=== PATIENT | male | born 1945 | race Caucasian/White ===

== ENCOUNTER 2017-10-31 06:56 | Day surgery (SDC) | payer MEDICARE, BC ==
[~2017-10-31 06:56] MED LIST: Lactated Ringers 1,000 ML IV SCH; Lidocaine 1%/Sod Bicarbonate in NS 8.4% 1 ML Syringe IDERM PRN; Sodium Chloride 0.9% 10 ML Syringe FLUSH PRN
[2017-10-31] MEDS ORDERED: Lidocaine 1% 2 ML ONE ×2 (07:01)
[2017-10-31] MEDS ORDERED: Propofol 200 MG/20 ML SDV ONE ×2 (07:01→08:18)
--- NOTE | 2017-10-31 07:26 | PCM.PREANE ---
Preanesthetic Assessment - Allergies Allergies/Adverse Reactions: Allergies Allergy/AdvReac Type Severity Reaction Status Date / Time mold Allergy Cannot Verified 10/30/17 13:37 Remember dust Allergy Cannot Uncoded 10/30/17 13:37 Remember PreAnesthesia Questionnaire HEENT History: Reports: Impaired Vision, Sinusitis, Other (See Below) Other HEENT History: wears glasses, has dentures Cardiovascular History: Reports: Afib, CAD, High Cholesterol, Hypertension, Pacemaker, Other (See Below) Other Cardiovascular History: sick sinus syndrome prior to pacemaker, peripheral artery disease Respiratory History: Reports: None Gastrointestinal History: Reports: Colon Polyp, Other (See Below) Other Gastrointestinal History: CDIFF Genitourinary History: Reports: Other (See Below) Other Genitourinary History: renal insufficiency INNOVATION ANALYST History: Reports: None Musculoskeletal History: Reports: Other (See Below) Other Musculoskeletal History: left shoulder pain Neurological History: Reports: Other (See Below) Other Neuro History: dunaway's palsy Psychiatric History: Reports: Anxiety, Depression Endocrine/Metabolic History: Reports: None Hematologic History: Reports: None Immunologic History: Reports: None Oncologic (Cancer) History: Reports: None Dermatologic History: Reports: None - Past Surgical History HEENT Surgical History: Reports: Cataract Surgery Cardiovascular Surgical History: Reports: Pacer Respiratory Surgical History: Reports: None GI Surgical History: Reports: Appendectomy, Cholecystectomy, Colonoscopy Female Surgical History: Reports: None Male Surgical History: Reports: None Endocrine Surgical History: Reports: None Neurological Surgical History: Reports: None Oncologic Surgical History: Reports: None Dermatological Surgical History: Reports: None - SUBSTANCE USE Smoking Status *Q: Never Smoker Recreational Drug Use History: No - HOME MEDS Home Medications: Home Meds Apixaban [Eliquis] 5 mg PO BID 10/30/17 [History] Atenolol 25 mg PO BID 10/30/17 [History] ClonazePAM [KlonoPIN] 0.5 mg PO BID 10/30/17 [History] Ipratropium [Atrovent 0.06% Nasal [place]] 1 spray NASBOTH BID 10/30/17 [History] Simvastatin 10 mg PO BEDTIME 10/30/17 [History] Vortioxetine Hydrobromide [Trintellix] 10 mg PO QAM 10/30/17 [History] traZODone HCl [Trazodone HCl] 50 mg PO BEDTIME 10/30/17 [History] - CURRENT (IN HOUSE) MEDS Current Meds: Current Medications Lactated Ringer's (Ringers, Lactated) 1,000 mls @ 125 mls/hr IV ASDIRECTED SERJIO Stop: 10/31/17 23:00 Lidocaine/Sodium Bicarbonate (Buffered Lidocaine 1% In Ns 8.4%) 0.25 ml IDERM ONETIME PRN PRN Reason: Prior to IV Start Stop: 10/31/17 18:00 Sodium Chloride (Saline Flush) 10 ml FLUSH ASDIRECTED PRN PRN Reason: Keep Vein Open Stop: 10/31/17 18:00 Discontinued Medications Lidocaine HCl (Xylocaine-Mpf 1%) Confirm Administered Dose 2 mls @ as directed .ROUTE .STK-MED ONE Stop: 10/31/17 07:02 Lidocaine HCl (Xylocaine-Mpf 1%) Confirm Administered Dose 2 mls @ as directed .ROUTE .STK-MED ONE Stop: 10/31/17 07:02 Propofol (Diprivan 20 Ml) Confirm Administered Dose 200 mg .ROUTE .STK-MED ONE Stop: 10/31/17 07:02
[2017-10-31] MEDS ORDERED: Atenolol 25 MG Tab PO SCH (07:30)
--- NOTE | 2017-10-31 07:32 | PCM.PREANE ---
Preanesthetic Assessment - Anesthesia/Transfusion/Family Hx Anesthesia History: Prior Anesthesia Without Reaction Family History of Anesthesia Reaction: No Transfusion History: No Prior Transfusion(s) Intubation History: Unknown - Review of Systems General: No Symptoms Pulmonary: No Symptoms, Cough (pt states he does have an allergy cough) Gastrointestinal: No Symptoms Neurological: No Symptoms Other: Reports: None - Physical Assessment NPO Status Date: 10/30/17 NPO Status Time: 16:00 Pulse: 69 O2 Sat by Pulse Oximetry: 96 Respiratory Rate: 16 Blood Pressure: 138/86 Temperature: 98.0 C ASA Class: 2 Mental Status: Alert & Oriented x3 Airway Class: Mallampati = 2 Dentition: Reports: Partial Thyro-Mental Finger Breadths: 3 Mouth Opening Finger Breadths: 3 ROM/Head Extension: Full Lungs: Clear to Auscultation, Normal Respiratory Effort Cardiovascular: Regular Rate, Regular Rhythm - Allergies Allergies/Adverse Reactions: Allergies Allergy/AdvReac Type Severity Reaction Status Date / Time mold Allergy Cannot Verified 10/30/17 13:37 Remember dust Allergy Cannot Uncoded 10/30/17 13:37 Remember - Anesthesia Plan Beta Sirisha: Atenolol Med Last Dose Date: 10/29/17 Med Last Dose Time: 07:00 - Acknowledgements Anesthesia Type Planned: MAC Pt an Appropriate Candidate for the Planned Anesthesia: Yes Alternatives and Risks of Anesthesia Discussed w Pt/Guardian: Yes Pt/Guardian Understands and Agrees with Anesthesia Plan: Yes PreAnesthesia Questionnaire HEENT History: Reports: Impaired Vision, Sinusitis, Other (See Below) Other HEENT History: wears glasses, has dentures Cardiovascular History: Reports: Afib, CAD, High Cholesterol, Hypertension, Pacemaker, Other (See Below) Other Cardiovascular History: sick sinus syndrome prior to pacemaker, peripheral artery disease Respiratory History: Reports: None Gastrointestinal History: Reports: Colon Polyp, GERD, Other (See Below) Other Gastrointestinal History: CDIFF Genitourinary History: Reports: Other (See Below) Other Genitourinary History: renal insufficiency STRAINER CLEANER History: Reports: None Musculoskeletal History: Reports: Other (See Below) Other Musculoskeletal History: left shoulder pain Neurological History: Reports: Other (See Below) Other Neuro History: dunaway's palsy Psychiatric History: Reports: Anxiety, Depression Hematologic History: Reports: None Immunologic History: Reports: None Oncologic (Cancer) History: Reports: None Dermatologic History: Reports: None - Past Surgical History HEENT Surgical History: Reports: Cataract Surgery Cardiovascular Surgical History: Reports: Pacer Respiratory Surgical History: Reports: None GI Surgical History: Reports: Appendectomy, Cholecystectomy, Colonoscopy Female Surgical History: Reports: None Male Surgical History: Reports: None Endocrine Surgical History: Reports: None Neurological Surgical History: Reports: None Musculoskeletal Surgical History: Reports: None Oncologic Surgical History: Reports: None Dermatological Surgical History: Reports: None - SUBSTANCE USE Smoking Status *Q: Former Smoker Recreational Drug Use History: No - HOME MEDS Home Medications: Home Meds Apixaban [Eliquis] 5 mg PO BID 10/30/17 [History] Atenolol 25 mg PO BID 10/30/17 [History] ClonazePAM [KlonoPIN] 0.5 mg PO BID 10/30/17 [History] Ipratropium [Atrovent 0.06% Nasal [place]] 1 spray NASBOTH BID 10/30/17 [History] Simvastatin 10 mg PO BEDTIME 10/30/17 [History] Vortioxetine Hydrobromide [Trintellix] 10 mg PO QAM 10/30/17 [History] traZODone HCl [Trazodone HCl] 50 mg PO BEDTIME 10/30/17 [History] - CURRENT (IN HOUSE) MEDS Current Meds: Current Medications Lactated Ringer's (Ringers, Lactated) 1,000 mls @ 125 mls/hr IV ASDIRECTED SERJIO Stop: 10/31/17 23:00 Lidocaine/Sodium Bicarbonate (Buffered Lidocaine 1% In Ns 8.4%) 0.25 ml IDERM ONETIME PRN PRN Reason: Prior to IV Start Stop: 10/31/17 18:00 Sodium Chloride (Saline Flush) 10 ml FLUSH ASDIRECTED PRN PRN Reason: Keep Vein Open Stop: 10/31/17 18:00 Discontinued Medications Lidocaine HCl (Xylocaine-Mpf 1%) Confirm Administered Dose 2 mls @ as directed .ROUTE .STK-MED ONE Stop: 10/31/17 07:02 Lidocaine HCl (Xylocaine-Mpf 1%) Confirm Administered Dose 2 mls @ as directed .ROUTE .STK-MED ONE Stop: 10/31/17 07:02 Propofol (Diprivan 20 Ml) Confirm Administered Dose 200 mg .ROUTE .STK-MED ONE Stop: 10/31/17 07:02
--- NOTE | 2017-10-31 08:56 | PCM48HPAN ---
Post Anesthesia Note - EVALUATION WITHIN 48HRS OF ANESTHETIC Vital Signs in Normal Range: Yes Patient Participated in Evaluation: Yes Respiratory Function Stable: Yes Airway Patent: Yes Cardiovascular Function Stable: Yes Hydration Status Stable: Yes Pain Control Satisfactory: Yes Nausea and Vomiting Control Satisfactory: Yes Mental Status Recovered: Yes Pulse Rate: 65 SaO2: 97 Resp Rate: 14 Temperature: 98.0 C Blood Pressure: 110/63 Pulse Rate: 65
--- NOTE | 2017-10-31 09:10 | PCM.OPNOTE ---
- General Post-Op/Procedure Note Date of Surgery/Procedure: 10/31/17 Findings: colonoscopy to cecum, multiple polyps noted and removed, several 1-2mm polyps not resected Pre Op Diagnosis: history of colon polyps Post-Op Diagnosis: same Anesthesia Technique: MAC Primary Surgeon: Cassi Barahona Anesthesia Provider: Jenny Steven Pathology: 1. Ascending colon polyps x2 2. Hepatic flexure polyps 3. Transverse colon polyp 4. Descending colon polyp 5. Sigmoid colon polyp Fluid Replacement, Intraop: 900 Output, Urine Amount: 0 EBL in mLs: 0 Complications: none apparent Condition: Good
--- NOTE | 2017-10-31 10:04 | PCM.PRNOTE ---
- Free Text/Narrative Note: Operative Report Date of Surgery/Procedure: October 31, 2017 Operative Procedure: Colonoscopy to cecum with polypectomy Pre Op Diagnosis: colorectal cancer screening with history of colon polyps Post-Op Diagnosis: Same Surgeon: Cassi Barahona MD Anesthesia Technique: MAC Anesthesia Provider: Jenny Steven CRNA IV Fluid Replacement, Intraop: 900 cc Output, Urine Amount: , 0 cc EBL : 0 cc Findings: Multiple scattered polyps throughout the colon including several 1-2 mm polyps that appeared as hyperplastic polyps that were not biopsied Specimens: 1. Ascending colon polyps x2 2. Hepatic flexure polyps 3. Transverse colon polyp 4. Descending colon polyp 5. Sigmoid colon polyp Indication: The patient is a 72 year-old gentleman who presented to the outpatient clinic requesting colorectal cancer screening. The patient has a history of colon polyps. He was scheduled to have a colonoscopy a few months ago, but it was rescheduled due to inhospitable weather conditions. We discussed the procedure of a screening colonoscopy including the polypectomy and biopsy. Risks of bleeding and perforation were discussed, the patient understood and wished to proceed. Written and consent was obtained Description of the procedure: The patient was brought to the endoscopy suite and placed in the left lateral decubitus position. Appropriate monitors were applied. The patient was given MAC anesthesia. An anorectal examination was performed, revealing very tight sphincter. The scope was placed into the rectum and advanced to cecum with moderate difficulty requiring abdominal pressure. The patients cecum was visualized but could not be entered due to tortuosity of the colon. The ileocecal valve was identified. At this point, the scope was withdrawn, paying careful attention to the mucosa. The patient had good bowel prep, allowing for visualization of 85-90 % of the mucosa. Multiple flat polyps were noted measuring 2-4 mm and were removed using a cold biopsy forceps. Polyps were taken from the ascending colon, hepatic flexure, transverse colon, descending colon, and sigmoid colon. Additional 1-2 mm polyps were noted at other points in the colon, but these had the appearance of hyperplastic polyps were not biopsied due to their small size. was noted. In the rectum, the scope was retroflexed and no abnormalities were noted, except for some hemorrhoidal tissue. The scope was placed back in the lumen and the excess air was aspirated. The patient tolerated the procedure well. Complications: none apparent Condition: Good, transported to PACU in stable condition Cassi Barahona MD General Surgery
== END 2017-10-31 09:29 | disposition home or self-care (01) ==
LOC: JD.SDS 06:56
PROVIDERS: ATTEND Surgery
DX: Z12.11 Encounter for screening for malignant neoplasm of colon (principal); D12.2 Benign neoplasm of ascending colon; D12.3 Benign neoplasm of transverse colon; D12.4 Benign neoplasm of descending colon; D12.5 Benign neoplasm of sigmoid colon; K64.9 Unspecified hemorrhoids; I10 Essential (primary) hypertension; E78.00 Pure hypercholesterolemia, unspecified; I25.10 Atherosclerotic heart disease of native coronary artery without angina pectoris; I48.0 Paroxysmal atrial fibrillation; I49.5 Sick sinus syndrome; I73.9 Peripheral vascular disease, unspecified; G51.0 Bell's palsy; F41.8 Other specified anxiety disorders; Z86.010 Personal history of colon polyps; Z79.899 Other long term (current) drug therapy; Z88.8 Allergy status to other drugs, medicaments and biological substances; Z87.891 Personal history of nicotine dependence
CPT/HCPCS: 45380; A9270; J2704; J7120; 00811; 88305; J2001

== ENCOUNTER 2019-06-16 09:33 | Observation (INO) | payer MEDICARE, BC ==
--- NOTE | 2019-06-16 10:03 | CR ---
Chest: Portable view of the chest was obtained. Comparison: No prior chest imaging is available. Heart size and mediastinum are within normal limits for portable technique. Small linear area of atelectasis or scarring is seen overlying the left cardiac apex. Lungs otherwise are clear with no acute parenchymal change. Bichamber pacemaker is seen. Bony structures are grossly intact. Surgical clips are seen with the upper abdomen most likely from prior cholecystectomy. Impression: 1. Nothing acute is seen on portable chest x-ray. Diagnostic code #2 This report was dictated in MDT
--- NOTE | 2019-06-16 11:18 | EDM.PDOC ---
ED HPI GENERAL MEDICAL PROBLEM - General Chief Complaint: Chest Pain Stated Complaint: CHEST PAIN/BTOH ARM NUMBNESS/SOB Time Seen by Provider: 06/16/19 09:35 Source of Information: Reports: Patient History Limitations: Reports: No Limitations - History of Present Illness INITIAL COMMENTS - FREE TEXT/NARRATIVE: TRIAGE NOTE -- pt c/o CP starting at 0900 this morning when he went for a walk. pt states pain then was 10/10, pain currently lying in bed is 5/10. pt has hx of HTN, high cholesterol and has a pacemaker. not diaphoretic, denies SOB currently. pt states he normally walks 3 mi no problem but wasnt able to walk today d/t the pain. pt states hes been having intermittent CP for past month but nothing like the pain this morning at 9am Above-noted. The patient has been taking a daily walk. He has been able to walk 3 miles until about 3 months ago. He has had to cut his distance back because he has had chest discomfort but no zheng chest pain but he had felt bad enough that his walking distance has been dropped incrementally. This morning he went for a walk and at the half mile onel or so he had significant central chest pain radiating to both arms. Did not note any diaphoresis. There is an equivocal history of shortness of breath associated with this. Most significantly the patient became so weak that he had to rest. The entire episode lasted perhaps 1 hour. The patient has some cardiological history. He is not real clear on the details. He had to have a pacemaker placed apparently for bradycardia but he is not real clear about this. He is also anticoagulated but is not sure why he is chronically anticoagulated. He does not recall a history of atrial fibrillation. All symptoms have resolved except for perhaps a little discomfort in his arms bilaterally. He feels well by the time of arrival. He has not taken any medication such as nitroglycerin or any other measure to moderate symptoms. It is not clear that he has had recent or current cardiology follow-up. Risk factors would include hypertension, chronic anticoagulation, and cardiological issues leading to a pacemaker and anticoagulation details of which are not known. He is a former smoker says he quit some 35 years ago. Chest Pain Score (Numeric/FACES): 5 - Related Data Allergies Allergy/AdvReac Type Severity Reaction Status Date / Time mold Allergy Severe Cannot Verified 06/16/19 09:42 Remember dust Allergy Severe Cannot Uncoded 06/16/19 09:42 Remember Home Meds: Home Meds Apixaban [Eliquis] 5 mg PO BID 10/30/17 [History] ClonazePAM [KlonoPIN] 0.5 mg PO BID 10/30/17 [History] Simvastatin 10 mg PO BEDTIME 10/30/17 [History] Vortioxetine [Trintellix] 10 mg PO QAM 10/30/17 [History] atenoloL [Atenolol] 25 mg PO DAILY 10/30/17 [History] traZODone HCl [Trazodone HCl] 50 mg PO BEDTIME 10/30/17 [History] Past Medical History HEENT History: Reports: Impaired Vision, Sinusitis, Other (See Below) Other HEENT History: wears glasses, has dentures Cardiovascular History: Reports: Afib, CAD, High Cholesterol, Hypertension, Pacemaker, Other (See Below) Other Cardiovascular History: sick sinus syndrome prior to pacemaker, peripheral artery disease Respiratory History: Reports: None Gastrointestinal History: Reports: Colon Polyp, GERD, Other (See Below) Other Gastrointestinal History: CDIFF Genitourinary History: Reports: Other (See Below) Other Genitourinary History: renal insufficiency FUR REPAIR INSPECTOR History: Reports: None Musculoskeletal History: Reports: Other (See Below) Other Musculoskeletal History: left shoulder pain Neurological History: Reports: Other (See Below) Other Neuro History: dunaway's palsy Psychiatric History: Reports: Anxiety, Depression Endocrine/Metabolic History: Reports: None Hematologic History: Reports: None Immunologic History: Reports: None Oncologic (Cancer) History: Reports: None Dermatologic History: Reports: None - Infectious Disease History Infectious Disease History: Reports: C-Difficile - Past Surgical History HEENT Surgical History: Reports: Cataract Surgery Cardiovascular Surgical History: Reports: Pacer Respiratory Surgical History: Reports: None GI Surgical History: Reports: Appendectomy, Cholecystectomy, Colonoscopy Male Surgical History: Reports: None Endocrine Surgical History: Reports: None Neurological Surgical History: Reports: None Musculoskeletal Surgical History: Reports: None Oncologic Surgical History: Reports: None Dermatological Surgical History: Reports: None Social & Family History - Tobacco Use Smoking Status *Q: Former Smoker Used Tobacco, but Quit: Yes Month/Year Tobacco Last Used: 35 years ago - Caffeine Use Caffeine Use: Reports: Tea - Recreational Drug Use Recreational Drug Use: No ED ROS GENERAL - Review of Systems Review Of Systems: Comprehensive ROS is negative, except as noted in HPI. ED EXAM, GENERAL - Physical Exam Exam: See Below Exam Limited By: No Limitations General Appearance: Alert, WD/WN, No Apparent Distress Eye Exam: Bilateral Eye: EOMI, PERRL Ears: Normal External Exam Nose: Normal Inspection Throat/Mouth: Normal Inspection Head: Atraumatic, Normocephalic Neck: Normal Inspection, Supple Respiratory/Chest: No Respiratory Distress, Decreased Breath Sounds Cardiovascular: Regular Rate, Rhythm (Paced) GI/Abdominal: Soft, Non-Tender Back Exam: Normal Inspection Extremities: Normal Inspection, Non-Tender, No Pedal Edema Neurological: Alert, Oriented, Normal Cognition Psychiatric: Normal Affect, Normal Mood Skin Exam: Warm, Dry Course - Vital Signs Last Recorded V/S: Last Vital Signs Temp 36.1 C 06/16/19 09:39 Pulse 65 06/16/19 09:39 Resp 18 06/16/19 09:39 BP 128/80 06/16/19 09:39 Pulse Ox 96 06/16/19 09:39 - Orders/Labs/Meds Orders: Active Orders 24 hr Category Date Time Status EKG Documentation Completion [RC] STAT Care 06/16/19 09:47 Active Labs: Laboratory Tests 06/16/19 06/16/19 06/16/19 Range/Units 09:45 09:45 09:45 WBC 6.35 (4.23-9.07) K/mm3 RBC 4.36 L (4.63-6.08) M/mm3 Hgb 13.3 L (13.7-17.5) gm/dl Hct 41.0 (40.1-51.0) % MCV 94.0 H (79.0-92.2) fl MCH 30.5 (25.7-32.2) pg MCHC 32.4 (32.2-35.5) g/dl RDW Std Deviation 43.6 (35.1-43.9) fL Plt Count 165 (163-337) K/mm3 MPV 11.5 (9.4-12.3) fl Neutrophils % (Manual) 60 (40-60) % Band Neutrophils % 0 (0-10) % Lymphocytes % (Manual) 32 (20-40) % Atypical Lymphs % 0 % Monocytes % (Manual) 7 (2-10) % Eosinophils % (Manual) 0 L (0.8-7.0) % Basophils % (Manual) 1 (0.2-1.2) Platelet Estimate Adequate Poikilocytosis 1+ slight Anisocytosis 1+ slight RBC Morph Comment Not Reportable PT 11.2 (9.7-12.0) SECONDS INR 1.03 APTT 29 (22-31) SECONDS Sodium 145 (136-145) mEq/L Potassium 4.2 (3.5-5.1) mEq/L Chloride 107 (98-107) mEq/L Carbon Dioxide 29 (21-32) mEq/L Anion Gap 13.2 (5-15) BUN 20 H (7-18) mg/dL Creatinine 1.5 H (0.7-1.3) mg/dL Est Cr Clr Drug Dosing 41.80 mL/min Estimated GFR (MDRD) 46 (>60) mL/min BUN/Creatinine Ratio 13.3 L (14-18) Glucose 130 H (83-115) mg/dL Calcium 8.7 (8.5-10.1) mg/dL Total Bilirubin 0.8 (0.2-1.0) mg/dL AST 22 (15-37) U/L ALT 20 (16-63) U/L Alkaline Phosphatase 117 H (46-116) U/L Troponin I < 0.017 (0.00-0.056) ng/mL Total Protein 7.2 (6.4-8.2) g/dl Albumin 3.6 (3.4-5.0) g/dl Globulin 3.6 gm/dL Albumin/Globulin Ratio 1.0 (1-2) TSH 3rd Generation 2.057 (0.358-3.74) uIU/mL - Re-Assessments/Exams Free Text/Narrative Re-Assessment/Exam: 06/16/19 12:11 The patient has remained comfortable. There are no salient lab abnormals. EKG initially was atrial paced with later tracing showing lack of atrial capture with ventricular pacing. No acute change in the EKG. Chest x-ray without acute process. Patient needs to be observed and referral or transfer can be done as indicated. Dr. Joseph has evaluated the patient and the emergency department and is admitting him in observation status to the hospitalist service. Departure - Departure Time of Disposition: 12:13 Disposition: Refer to Observation Condition: Good Clinical Impression: Exertional angina, History of pacemaker, Chronic anticoagulation Referrals: Kelli Solorio MD [Primary Care Provider] - Forms: ED Department Discharge Sepsis Event Note - Evaluation Sepsis Screening Result: No Definite Risk - Focused Exam Vital Signs: Vital Signs Temp Pulse Resp BP Pulse Ox 06/16/19 09:39 36.1 C 65 18 128/80 96 Date Exam was Performed: 06/16/19 Time Exam was Performed: 12:11 - My Orders Last 24 Hours: My Active Orders 06/16/19 09:47 EKG Documentation Completion [RC] STAT - Assessment/Plan Last 24 Hours: My Active Orders 06/16/19 09:47 EKG Documentation Completion [RC] STAT
[2019-06-16] MEDS ORDERED: Albuterol 0.083% 2.5 MG/3 ML Neb Soln NEB PRN (13:29)
[2019-06-16] MEDS ORDERED: Acetaminophen 650 MG Supp RECTAL PRN (13:29)
[2019-06-16] MEDS ORDERED: Acetaminophen 325 MG Tab PO PRN (13:29)
[2019-06-16] MEDS ORDERED: Ondansetron 4 MG/2 ML SDV IVPUSH PRN (13:29)
[2019-06-16] MEDS ORDERED: Morphine 2 MG/ML Syringe IVPUSH PRN (13:29)
--- NOTE | 2019-06-16 14:20 | PCM.HP.2 ---
<Griffin Collins N - Last Filed: 06/16/19 14:13> H&P History of Present Illness - General Date of Service: 06/16/19 Admit Problem/Dx: Admission Diagnosis/Problem Admission Diagnosis/Problem Chest pain Source of Information: Patient History Limitations: Reports: No Limitations - History of Present Illness Initial Comments - Free Text/Narative: Mr. Kwasi pelayo 73-year-old male, with past medical history significant for hypertension, dyslipidemia, depression, sick sinus syndrome and atrial fibrillation status post pacemaker placement anticoagulated with Eliquis. The patient presented today for evaluation of chest pain. The patient reported he was in his usual state of health, when approximately around 9:30 AM this morning, while doing his usual normal 2 mile walk, he developed sudden midsternal to left-sided chest pain. Patient claims pain as squeezing in nature, with radiation to both arms, reports numbness and tingling, reported symptoms last about 5 minutes, alleviated with rest, did not take any medications during episodes of chest discomfort. Also states he has noticed similar episodes in the past. Patient over the past 6 months with minimal exertion, he noticed some chest discomfort. Denies any lightheadedness, any nausea vomiting, diaphoresis denies any dysuria frequency urgency. Per the patient last stress test more than 10 years ago. Decided to come to the ED for further evaluation. Presentation to ED, initial work-up that was done to the patient and EKG and cardiac enzymes no concern for any acute findings except for BUN/creatinine 20/1.5. Given the patient's significant history of atrial fibrillation, presentation of chest pain patient will be admitted for observation for further work-up and management. Chest Pain Score (Numeric/FACES): 5 - Related Data Allergies/Adverse Reactions: Allergies Allergy/AdvReac Type Severity Reaction Status Date / Time mold Allergy Severe Cannot Verified 06/16/19 09:42 Remember dust Allergy Severe Cannot Uncoded 06/16/19 09:42 Remember Home Medications: Home Meds Apixaban [Eliquis] 5 mg PO BID 10/30/17 [History] ClonazePAM [KlonoPIN] 0.5 mg PO BID 10/30/17 [History] Simvastatin 10 mg PO BEDTIME 10/30/17 [History] Vortioxetine [Trintellix] 10 mg PO QAM 10/30/17 [History] atenoloL [Atenolol] 25 mg PO DAILY 10/30/17 [History] traZODone HCl [Trazodone HCl] 50 mg PO BEDTIME 10/30/17 [History] Past Medical History HEENT History: Reports: Impaired Vision, Sinusitis, Other (See Below) Other HEENT History: wears glasses, has dentures Cardiovascular History: Reports: Afib, CAD, High Cholesterol, Hypertension, Pacemaker, Other (See Below) Other Cardiovascular History: sick sinus syndrome prior to pacemaker, peripheral artery disease Respiratory History: Reports: None Gastrointestinal History: Reports: Colon Polyp, GERD, Other (See Below) Other Gastrointestinal History: CDIFF Genitourinary History: Reports: Other (See Below) Other Genitourinary History: renal insufficiency CHISELER HEAD History: Reports: None Musculoskeletal History: Reports: Other (See Below) Other Musculoskeletal History: left shoulder pain Neurological History: Reports: Other (See Below) Other Neuro History: dunaway's palsy Psychiatric History: Reports: Anxiety, Depression Endocrine/Metabolic History: Reports: None Hematologic History: Reports: None Immunologic History: Reports: None Oncologic (Cancer) History: Reports: None Dermatologic History: Reports: None - Infectious Disease History Infectious Disease History: Reports: C-Difficile - Past Surgical History HEENT Surgical History: Reports: Cataract Surgery Cardiovascular Surgical History: Reports: Pacer Respiratory Surgical History: Reports: None GI Surgical History: Reports: Appendectomy, Cholecystectomy, Colonoscopy Male Surgical History: Reports: None Endocrine Surgical History: Reports: None Neurological Surgical History: Reports: None Musculoskeletal Surgical History: Reports: None Oncologic Surgical History: Reports: None Dermatological Surgical History: Reports: None Social & Family History - Tobacco Use Smoking Status *Q: Former Smoker Used Tobacco, but Quit: Yes Month/Year Tobacco Last Used: 35 years ago - Caffeine Use Caffeine Use: Reports: Tea - Recreational Drug Use Recreational Drug Use: No H&P Review of Systems - Review of Systems: Review Of Systems: See Below General: Reports: No Symptoms HEENT: Reports: No Symptoms Cardiovascular: Reports: Chest Pain (with exertion) Gastrointestinal: Reports: No Symptoms Genitourinary: Reports: No Symptoms Musculoskeletal: Reports: No Symptoms Skin: Reports: No Symptoms Psychiatric: Reports: No Symptoms Neurological: Reports: No Symptoms (both hands), Numbness (in both hands), Tingling Hematologic/Lymphatic: Reports: No Symptoms Immunologic: Reports: No Symptoms Exam - Exam Exam: See Below - Vital Signs Vital Signs: Last Vital Signs Temp 96.9 F 06/16/19 09:39 Pulse 65 06/16/19 09:39 Resp 18 06/16/19 09:39 BP 128/80 06/16/19 09:39 Pulse Ox 96 06/16/19 09:39 Weight: 77.111 kg - Exam General: Alert, Oriented, Cooperative HEENT: Conjunctiva Clear, EACs Clear, EOMI, Hearing Intact Neck: Supple, Trachea Midline Lungs: Clear to Auscultation, Normal Respiratory Effort Cardiovascular: Regular Rate, Regular Rhythm GI/Abdominal Exam: Normal Bowel Sounds, Soft, Non-Tender, No Organomegaly, No Distention, No Mass Back Exam: Normal Inspection, Full Range of Motion Extremities: Normal Inspection, Normal Range of Motion Skin: Warm, Dry, Intact Neurological: Cranial Nerves Intact, Reflexes Equal Bilateral Neuro Extensive - Mental Status: Alert, Oriented x3, Normal Mood/Affect, Normal Cognition, Memory Intact Psychiatric: Alert, Normal Affect, Normal Mood - Patient Data Lab Results Last 24 hrs: Laboratory Results - last 24 hr 06/16/19 06/16/19 06/16/19 Range/Units 09:45 09:45 09:45 WBC 6.35 (4.23-9.07) K/mm3 RBC 4.36 L (4.63-6.08) M/mm3 Hgb 13.3 L (13.7-17.5) gm/dl Hct 41.0 (40.1-51.0) % MCV 94.0 H (79.0-92.2) fl MCH 30.5 (25.7-32.2) pg MCHC 32.4 (32.2-35.5) g/dl RDW Std Deviation 43.6 (35.1-43.9) fL Plt Count 165 (163-337) K/mm3 MPV 11.5 (9.4-12.3) fl Neutrophils % (Manual) 60 (40-60) % Band Neutrophils % 0 (0-10) % Lymphocytes % (Manual) 32 (20-40) % Atypical Lymphs % 0 % Monocytes % (Manual) 7 (2-10) % Eosinophils % (Manual) 0 L (0.8-7.0) % Basophils % (Manual) 1 (0.2-1.2) Platelet Estimate Adequate Poikilocytosis 1+ slight Anisocytosis 1+ slight RBC Morph Comment Not Reportable PT 11.2 (9.7-12.0) SECONDS INR 1.03 APTT 29 (22-31) SECONDS Sodium 145 (136-145) mEq/L Potassium 4.2 (3.5-5.1) mEq/L Chloride 107 (98-107) mEq/L Carbon Dioxide 29 (21-32) mEq/L Anion Gap 13.2 (5-15) BUN 20 H (7-18) mg/dL Creatinine 1.5 H (0.7-1.3) mg/dL Est Cr Clr Drug Dosing 41.80 mL/min Estimated GFR (MDRD) 46 (>60) mL/min BUN/Creatinine Ratio 13.3 L (14-18) Glucose 130 H (83-115) mg/dL Calcium 8.7 (8.5-10.1) mg/dL Phosphorus (2.6-4.7) mg/dL Total Bilirubin 0.8 (0.2-1.0) mg/dL AST 22 (15-37) U/L ALT 20 (16-63) U/L Alkaline Phosphatase 117 H (46-116) U/L Troponin I < 0.017 (0.00-0.056) ng/mL Total Protein 7.2 (6.4-8.2) g/dl Albumin 3.6 (3.4-5.0) g/dl Globulin 3.6 gm/dL Albumin/Globulin Ratio 1.0 (1-2) TSH 3rd Generation 2.057 (0.358-3.74) uIU/mL 06/16/19 Range/Units 09:45 WBC (4.23-9.07) K/mm3 RBC (4.63-6.08) M/mm3 Hgb (13.7-17.5) gm/dl Hct (40.1-51.0) % MCV (79.0-92.2) fl MCH (25.7-32.2) pg MCHC (32.2-35.5) g/dl RDW Std Deviation (35.1-43.9) fL Plt Count (163-337) K/mm3 MPV (9.4-12.3) fl Neutrophils % (Manual) (40-60) % Band Neutrophils % (0-10) % Lymphocytes % (Manual) (20-40) % Atypical Lymphs % % Monocytes % (Manual) (2-10) % Eosinophils % (Manual) (0.8-7.0) % Basophils % (Manual) (0.2-1.2) Platelet Estimate Poikilocytosis Anisocytosis RBC Morph Comment PT (9.7-12.0) SECONDS INR APTT (22-31) SECONDS Sodium (136-145) mEq/L Potassium (3.5-5.1) mEq/L Chloride (98-107) mEq/L Carbon Dioxide (21-32) mEq/L Anion Gap (5-15) BUN (7-18) mg/dL Creatinine (0.7-1.3) mg/dL Est Cr Clr Drug Dosing mL/min Estimated GFR (MDRD) (>60) mL/min BUN/Creatinine Ratio (14-18) Glucose (83-115) mg/dL Calcium (8.5-10.1) mg/dL Phosphorus 3.3 (2.6-4.7) mg/dL Total Bilirubin (0.2-1.0) mg/dL AST (15-37) U/L ALT (16-63) U/L Alkaline Phosphatase (46-116) U/L Troponin I (0.00-0.056) ng/mL Total Protein (6.4-8.2) g/dl Albumin (3.4-5.0) g/dl Globulin gm/dL Albumin/Globulin Ratio (1-2) TSH 3rd Generation (0.358-3.74) uIU/mL Result Diagrams: 06/16/19 09:45 06/16/19 09:45 Sepsis Event Note - Evaluation Sepsis Screening Result: No Definite Risk - Focused Exam Vital Signs: Vital Signs Temp Pulse Resp BP Pulse Ox 06/16/19 09:39 96.9 F 65 18 128/80 96 Date Exam was Performed: 06/16/19 Time Exam was Performed: 14:13 Problem List Initiated/Reviewed/Updated: Yes Orders Last 24hrs: Active Orders 24 hr Category Date Time Status Patient Status [ADT] Routine ADT 06/16/19 13:29 Active Antiembolic Devices [RC] PER UNIT ROUTINE Care 06/16/19 13:34 Active Cardiac Monitoring [RC] CONTINUOUS Care 06/16/19 13:29 Active EKG Documentation Completion [RC] ROUTINE Care 06/17/19 08:00 Active EKG Documentation Completion [RC] STAT Care 06/16/19 09:47 Active Height and Weight [RC] DAILY Care 06/16/19 13:29 Active Notify Provider Vital Signs [RC] ASDIRECTED Care 06/16/19 13:29 Active Orthostatic Vital Signs [RC] ASDIRECTED Care 06/16/19 13:26 Active Oxygen Therapy [RC] ASDIRECTED Care 06/16/19 13:29 Active Pacemaker Assessment [RC] ASDIRECTED Care 06/16/19 13:26 Active Up to Chair [RC] ASDIRECTED Care 06/16/19 13:29 Active Vital Signs [RC] PER UNIT ROUTINE Care 06/16/19 13:29 Active COMPREHENSIVE METABOLIC PN,CMP [CHEM] AM Lab 06/17/19 05:11 Ordered CULTURE URINE [RM] Routine Lab 06/16/19 13:44 Ordered GLYCOSYLATED HEMOGLOBIN,HGBA1C [CHEM] AM Lab 06/17/19 05:11 Ordered LIPID PANEL [CHEM] AM Lab 06/17/19 05:11 Ordered TROPONIN I [CHEM] Q6H Lab 06/16/19 16:00 Ordered TROPONIN I [CHEM] Q6H Lab 06/16/19 22:00 Ordered TROPONIN I [CHEM] Q6H Lab 06/17/19 04:00 Ordered TSH [CHEM] AM Lab 06/17/19 05:11 Ordered Acetaminophen [Tylenol] Med 06/16/19 13:29 Active 650 mg PO Q6H PRN Acetaminophen [Tylenol] Med 06/16/19 13:29 Active 650 mg RECTAL Q6H PRN Albuterol [Proventil Neb Soln] Med 06/16/19 13:29 Active 2.5 mg NEB Q2H PRN Apixaban [Eliquis] Med 06/16/19 21:00 Active 5 mg PO BID ClonazePAM [KlonoPIN] Med 06/16/19 21:00 Active 0.5 mg PO BID Docusate Sodium/Sennosides [Senna Plus] Med 06/16/19 21:00 Active 2 tab PO BID Famotidine [Pepcid] Med 06/16/19 18:00 Active 20 mg PO QPM Morphine Med 06/16/19 13:29 Active 2 mg IVPUSH Q4H PRN Ondansetron [Zofran] Med 06/16/19 13:29 Active 4 mg IVPUSH Q4H PRN Patient's Own Medication [Ptom] Med 06/17/19 08:00 Active 0 each PO QAM Simvastatin [Zocor] Med 06/16/19 21:00 Active 10 mg PO BEDTIME atenoloL [Tenormin] Med 06/17/19 09:00 Active 25 mg PO DAILY lisinopriL [Prinivil] Med 06/17/19 09:00 Ordered 5 mg PO DAILY polyethylene glycoL 3350 [MiraLAX] Med 06/17/19 09:00 Active 17 gm PO DAILY traZODone Med 06/16/19 21:00 Active 50 mg PO BEDTIME Antiembolic Hose [OM.PC] Routine Oth 06/16/19 13:29 Ordered Resuscitation Status Routine Resus Stat 06/16/19 13:29 Ordered Medication Orders Acetaminophen (Tylenol) 650 mg PO Q6H PRN PRN Reason: Pain (Mild 1-3) or Fever Acetaminophen (Tylenol) 650 mg RECTAL Q6H PRN PRN Reason: Pain (Mild 1-3) or Fever Albuterol (Proventil Neb Soln) 2.5 mg NEB Q2H PRN PRN Reason: Wheezing Apixaban (Eliquis) 5 mg PO BID SERJIO Atenolol (Tenormin) 25 mg PO DAILY SERJIO Clonazepam (Klonopin) 0.5 mg PO BID SERJIO Famotidine (Pepcid) 20 mg PO QPM SERJIO Morphine Sulfate (Morphine) 2 mg IVPUSH Q4H PRN PRN Reason: Pain (severe 7-10) Ondansetron HCl (Zofran) 4 mg IVPUSH Q4H PRN PRN Reason: Nausea and Vomiting Vortioxetine [ (Trintellix] 10 Mg) 0 each PO QAM SERJIO Polyethylene Glycol (Miralax) 17 gm PO DAILY SERJIO Senna/Docusate Sodium (Senna Plus) 2 tab PO BID SERJIO Simvastatin (Zocor) 10 mg PO BEDTIME SERJIO Trazodone HCl (Trazodone) 50 mg PO BEDTIME SERJIO Assessment/Plan Comment:: Assesment 1. Chest pain 2. Dehydration 3. Atrial fibrillation 4. Depression 5. Dyslipidemia Plan: Chest pain R/O VT: The patient will be on telemetry,trend troponin x4, EKG in the morning. Depending on test results, will decide for stress test. We will keep the patient on small dose of lisinopril 5 mg. Dehydration: On presentation BUN/creatinine 20/1.5, check the patient's orthostatic vital signs, and decide if to give patient IV fluids if patient is orthostatic. Dyslipidemia: Check lipid panel, continue simvastatin. History of paroxysmal atrial fibrillation/no syndrome syndrome: Patient's pacemaker will be interrogated, continue home atenolol, decrease. Monitor and replace electrolytes. DVT prophylaxis: On Eliquis, will continue. GI prophylaxis: Pepcid 20 mg every afternoon. Nausea: Zofran PRN nausea. Depression: Continue Trintellix and clonazepam. Insomnia: Continue trazodone Code Status: Full code Disposition: Patient will be admitted on observation for work-up and management as above trend cardiac enzymes check lipid panel TSH, interrogate pacemaker, will decide on stress test depending on patient's enzymes. - Mortality Measure Prognosis:: Good <Sabrina Thomason - Last Filed: 06/16/19 17:20> H&P History of Present Illness - General Admit Problem/Dx: Admission Diagnosis/Problem Admission Diagnosis/Problem Chest pain H&P Review of Systems - Review of Systems: Review Of Systems: Comprehensive ROS is negative, except as noted in HPI. Exam - Vital Signs Vital Signs: Last Vital Signs Temp 97.5 F 06/16/19 14:44 Pulse 62 06/16/19 14:44 Resp 18 06/16/19 09:39 BP 144/70 H 06/16/19 14:44 Pulse Ox 96 06/16/19 14:44 - Patient Data Result Diagrams: 06/16/19 09:45 06/16/19 09:45 Sepsis Event Note - Focused Exam Vital Signs: Vital Signs Temp Temp Pulse Pulse Resp BP BP 06/16/19 14:44 97.5 F 62 144/70 H 06/16/19 09:39 96.9 F 65 18 128/80 Pulse Ox 06/16/19 14:44 96 06/16/19 09:39 96 Date Exam was Performed: 06/16/19 Time Exam was Performed: 17:08 Assessment/Plan Comment:: 73-year-old male with past medical history of paroxysmal atrial fibrillation with sick sinus syndrome and pacemaker placement, hypertension and dyslipidemia with intermittent chest pain for the past 3 months and steadily worsening exercise tolerance who comes in for chest pain episode this morning. Chest pain described as squeezing graded 10/10 lasted for about 4-5 minutes while he was walking, resolved once he sat down. Denies any associated symptoms. Previous smoker, quit 35 years ago (1/2 to 1ppd) Chronic anticoagulation with Eliquis ER workup Admission VS 128/80, 65x', 18x;, 96% on RA, afebrile Creatinine of 1.5, GFR of 46 with unknown baseline No electrolyte abnormalities Negative troponin EKG within normal limits Patient denies any chest pain currently Admit patient to: Trend troponin q6h Repeat EKG in AM Start metoprolol, lisinopril, aspirin and rosuvastatin Interrogate pacemaker FULL CODE STATUS Case discussed with BRE Rowe Agree with assessment and plan set forth prior on this note.
[2019-06-16] MEDS ORDERED: Heparin Sodium/D5W 25,000 UNITS/500 ML BAG IV SCH (17:15)
[2019-06-16] MEDS ORDERED: Aspirin 81 MG Tab.Chew PO SCH (17:15)
--- NOTE | 2019-06-16 17:41 | PCM.DCSUM1 ---
Discharge Summary - Hospital Course Free Text/Narrative:: Admission Diagnosis: Chest pain Discharge Diagnosis: NSTEMI Hypertension Dyslipidemia Depression History of sick sinus syndrom s/p Pacemaker placement History paroxysmal atrial fibrillation anticoagulated with Eliquis Mr. Kwasi pelayo 73-year-old male, who was admitted this morning after the patient presented to the hospital with chief complaint of chest pain. Patient reported for the past 6 months, he has had occasional on and off chest discomfort initially thought nothing of this. 3 days ago, patient reported doing some exertion by lifting, where he noticed some chest discomfort. But today morning, patient states he normally walks about 2 miles. But just about half a mile, patient noticed he started having midsternal chest discomfort which patient describes as squeezing in nature, with radiation to both arms, reports numbness and tingling, symptoms lasted about 4-5 minutes that improved with rest, did not take any medication during this episode. Came to the ED for further evaluation. Initial work-up that was done to the patient in the ED benign except for BUN/creatinine of 20/1.5. Given this presentation, patient was admitted to the hospital for observation. Plan was to repeat the patient's EKG as well as cardiac enzymes and other cardiovascular risk equivalent. Repeat troponin came back elevated at 0.112 as compared to 0.017 at this time, the patient again was chest pain-free. Patient was given aspirin , was already started on lisinopril 5 mg along with statins. Patient was started on heparin drip. Given the patient is chest pain-free, no nitroglycerin will be given to the patient. [facility] [place] was contacted where patient was accepted by both marketing professional and hospitalist. Patient will be on heparin drip, keep patient n.p.o. after midnight, is for patient to [facility] where patient is scheduled for left heart catheterization in the morning. HPI Initial Comments: Mr. Kwasi pelayo 73-year-old male, with past medical history significant for hypertension, dyslipidemia, depression, sick sinus syndrome and atrial fibrillation status post pacemaker placement anticoagulated with Eliquis. The patient presented today for evaluation of chest pain. The patient reported he was in his usual state of health, when approximately around 9:30 AM this morning, while doing his usual normal 2 mile walk, he developed sudden midsternal to left-sided chest pain. Patient claims pain as squeezing in nature, with radiation to both arms, reports numbness and tingling, reported symptoms last about 5 minutes, alleviated with rest, did not take any medications during episodes of chest discomfort. Also states he has noticed similar episodes in the past. Patient over the past 6 months with minimal exertion, he noticed some chest discomfort. Denies any lightheadedness, any nausea vomiting, diaphoresis denies any dysuria frequency urgency. Per the patient last stress test more than 10 years ago. Decided to come to the ED for further evaluation. Presentation to ED, initial work-up that was done to the patient and EKG and cardiac enzymes no concern for any acute findings except for BUN/creatinine 20/1.5. Given the patient's significant history of atrial fibrillation, presentation of chest pain patient will be admitted for observation for further work-up and management. Diagnosis: Stroke: No - Discharge Data Discharge Date: 06/16/19 (Patient is being transferred to [facility] for further evaluation for NSTEMI) Discharge Disposition: DC/Tfer to Other 70 Condition: Serious - Referral to Home Health Primary Care Physician: Kelli Solorio MD - Patient Instructions Activity: Bedrest, May Use Bathroom (Until cleared by cardiology), No Strenuous Activities - Discharge Plan *PRESCRIPTION DRUG MONITORING PROGRAM REVIEWED*: No *COPY OF PRESCRIPTION DRUG MONITORING REPORT IN PATIENT AMBER: No Home Medications: Home Meds Apixaban [Eliquis] 5 mg PO BID 10/30/17 [History] ClonazePAM [KlonoPIN] 0.5 mg PO BID 10/30/17 [History] Simvastatin 10 mg PO BEDTIME 10/30/17 [History] Vortioxetine [Trintellix] 10 mg PO QAM 10/30/17 [History] atenoloL [Atenolol] 25 mg PO DAILY 10/30/17 [History] traZODone HCl [Trazodone HCl] 50 mg PO BEDTIME 10/30/17 [History] Oxygen Therapy Mode: Room Air (But we recommend to keep patient on 2 L of oxygen during transfer) Forms: ED Department Discharge Referrals: Kelli Solorio MD [Primary Care Provider] - - Discharge Summary/Plan Comment DC Time >30 min.: No - Patient Data Vitals - Most Recent: Last Vital Signs Temp 97.3 F 06/16/19 17:00 Pulse 62 06/16/19 17:00 Resp 20 06/16/19 17:00 BP 150/82 H 06/16/19 17:00 Pulse Ox 98 06/16/19 17:00 Weight - Most Recent: 170 lb Lab Results - Last 24 hrs: Laboratory Results - last 24 hr 06/16/19 06/16/19 06/16/19 Range/Units 09:45 09:45 09:45 WBC 6.35 (4.23-9.07) K/mm3 RBC 4.36 L (4.63-6.08) M/mm3 Hgb 13.3 L (13.7-17.5) gm/dl Hct 41.0 (40.1-51.0) % MCV 94.0 H (79.0-92.2) fl MCH 30.5 (25.7-32.2) pg MCHC 32.4 (32.2-35.5) g/dl RDW Std Deviation 43.6 (35.1-43.9) fL Plt Count 165 (163-337) K/mm3 MPV 11.5 (9.4-12.3) fl Neutrophils % (Manual) 60 (40-60) % Band Neutrophils % 0 (0-10) % Lymphocytes % (Manual) 32 (20-40) % Atypical Lymphs % 0 % Monocytes % (Manual) 7 (2-10) % Eosinophils % (Manual) 0 L (0.8-7.0) % Basophils % (Manual) 1 (0.2-1.2) Platelet Estimate Adequate Poikilocytosis 1+ slight Anisocytosis 1+ slight RBC Morph Comment Not Reportable PT 11.2 (9.7-12.0) SECONDS INR 1.03 APTT 29 (22-31) SECONDS Sodium 145 (136-145) mEq/L Potassium 4.2 (3.5-5.1) mEq/L Chloride 107 (98-107) mEq/L Carbon Dioxide 29 (21-32) mEq/L Anion Gap 13.2 (5-15) BUN 20 H (7-18) mg/dL Creatinine 1.5 H (0.7-1.3) mg/dL Est Cr Clr Drug Dosing 41.80 mL/min Estimated GFR (MDRD) 46 (>60) mL/min BUN/Creatinine Ratio 13.3 L (14-18) Glucose 130 H (83-115) mg/dL Calcium 8.7 (8.5-10.1) mg/dL Phosphorus (2.6-4.7) mg/dL Total Bilirubin 0.8 (0.2-1.0) mg/dL AST 22 (15-37) U/L ALT 20 (16-63) U/L Alkaline Phosphatase 117 H (46-116) U/L Troponin I < 0.017 (0.00-0.056) ng/mL Total Protein 7.2 (6.4-8.2) g/dl Albumin 3.6 (3.4-5.0) g/dl Globulin 3.6 gm/dL Albumin/Globulin Ratio 1.0 (1-2) TSH 3rd Generation 2.057 (0.358-3.74) uIU/mL 06/16/19 06/16/19 Range/Units 09:45 16:14 WBC (4.23-9.07) K/mm3 RBC (4.63-6.08) M/mm3 Hgb (13.7-17.5) gm/dl Hct (40.1-51.0) % MCV (79.0-92.2) fl MCH (25.7-32.2) pg MCHC (32.2-35.5) g/dl RDW Std Deviation (35.1-43.9) fL Plt Count (163-337) K/mm3 MPV (9.4-12.3) fl Neutrophils % (Manual) (40-60) % Band Neutrophils % (0-10) % Lymphocytes % (Manual) (20-40) % Atypical Lymphs % % Monocytes % (Manual) (2-10) % Eosinophils % (Manual) (0.8-7.0) % Basophils % (Manual) (0.2-1.2) Platelet Estimate Poikilocytosis Anisocytosis RBC Morph Comment PT (9.7-12.0) SECONDS INR APTT (22-31) SECONDS Sodium (136-145) mEq/L Potassium (3.5-5.1) mEq/L Chloride (98-107) mEq/L Carbon Dioxide (21-32) mEq/L Anion Gap (5-15) BUN (7-18) mg/dL Creatinine (0.7-1.3) mg/dL Est Cr Clr Drug Dosing mL/min Estimated GFR (MDRD) (>60) mL/min BUN/Creatinine Ratio (14-18) Glucose (83-115) mg/dL Calcium (8.5-10.1) mg/dL Phosphorus 3.3 (2.6-4.7) mg/dL Total Bilirubin (0.2-1.0) mg/dL AST (15-37) U/L ALT (16-63) U/L Alkaline Phosphatase (46-116) U/L Troponin I 0.112 H* (0.00-0.056) ng/mL Total Protein (6.4-8.2) g/dl Albumin (3.4-5.0) g/dl Globulin gm/dL Albumin/Globulin Ratio (1-2) TSH 3rd Generation (0.358-3.74) uIU/mL Med Orders - Current: Current Medications Acetaminophen (Tylenol) 650 mg PO Q6H PRN PRN Reason: Pain (Mild 1-3) or Fever Acetaminophen (Tylenol) 650 mg RECTAL Q6H PRN PRN Reason: Pain (Mild 1-3) or Fever Albuterol (Proventil Neb Soln) 2.5 mg NEB Q2H PRN PRN Reason: Wheezing Aspirin (Aspirin) 81 mg PO DAILY [facility] Atenolol (Tenormin) 25 mg PO DAILY [facility] Clonazepam (Klonopin) 0.5 mg PO BID [facility] Famotidine (Pepcid) 20 mg PO QPM [facility] Heparin Sodium/Dextrose (Heparin 25,000 Units In D5w 500 Ml) 25,000 units in 500 mls @ 18.507 mls/hr IV TITRATE SERJIO; Protocol Lisinopril (Prinivil) 5 mg PO DAILY [facility] Morphine Sulfate (Morphine) 2 mg IVPUSH Q4H PRN PRN Reason: Pain (severe 7-10) Ondansetron HCl (Zofran) 4 mg IVPUSH Q4H PRN PRN Reason: Nausea and Vomiting Vortioxetine [ (Trintellix] 10 Mg) 0 each PO QAM [facility] Polyethylene Glycol (Miralax) 17 gm PO DAILY [facility] Senna/Docusate Sodium (Senna Plus) 2 tab PO BID [facility] Simvastatin (Zocor) 10 mg PO BEDTIME [facility] Trazodone HCl (Trazodone) 50 mg PO BEDTIME [facility] Discontinued Medications Apixaban (Eliquis) 5 mg PO BID [facility] - Exam General: Reports: Alert, Oriented HEENT: Reports: Pupils Equal, Pupils Reactive, EOMI, Mucous Membr. Moist/[place]ce[place]ion Neck: Reports: Supple Lungs: Reports: Clear to Auscultation, Normal Respiratory Effort Cardiovascular: Reports: Regular Rate GI/Abdominal Exam: Normal Bowel Sounds, Soft, Non-Tender Back Exam: Reports: Normal Inspection, Full Range of Motion Extremities: Normal Inspection, Normal Range of Motion, Non-Tender, No Pedal Edema Skin: Reports: Warm, Dry, Intact Neurological: Reports: No New Focal Deficit Psy/Mental Status: Reports: Alert, Normal Affect, Normal Mood
[2019-06-16] MEDS ORDERED: Heparin Sodium 5,000 Units/ML Vial IVPUSH ONE (17:53)
[2019-06-16] MEDS ORDERED: Famotidine 20 MG Tab PO SCH (18:00)
[2019-06-16] MEDS ORDERED: Simvastatin 10 MG Tab PO SCH (21:00)
[2019-06-16] MEDS ORDERED: Apixaban 5 MG Tab PO SCH (21:00)
[2019-06-16] MEDS ORDERED: ClonazePAM 0.5 MG Tab PO SCH (21:00)
[2019-06-16] MEDS ORDERED: traZODone 50 MG Tab PO SCH (21:00)
[2019-06-17] MEDS ORDERED: Vortioxetine [Trintellix] 10 MG PO SCH (08:00)
[2019-06-17] MEDS ORDERED: Polyethylene Glycol 3350 Powder 17 GM Packet PO SCH (09:00)
[2019-06-17] MEDS ORDERED: Atenolol 25 MG Tab PO SCH (09:00)
[2019-06-17] MEDS ORDERED: Lisinopril 5 MG Tab PO SCH (09:00)
== END 2019-06-16 18:35 | disposition other institution (70) ==
LOC: JD.ED 09:33 → JD.MS 13:29
PROVIDERS: ADMIT Internal Medicine; ATTEND Internal Medicine
DX: I21.4 Non-ST elevation (NSTEMI) myocardial infarction (principal); I10 Essential (primary) hypertension; E78.5 Hyperlipidemia, unspecified; F32.9 Major depressive disorder, single episode, unspecified; I48.0 Paroxysmal atrial fibrillation; E86.0 Dehydration; Z79.01 Long term (current) use of anticoagulants; Z79.899 Other long term (current) drug therapy; Z95.0 Presence of cardiac pacemaker; Z87.891 Personal history of nicotine dependence; Z91.09 Other allergy status, other than to drugs and biological substances
CPT/HCPCS: 36415; 71045; 80053; 84100; 84443; 84484; 85007; 85027; 85610; 85730; 93005; A9270; J1644

== ENCOUNTER 2020-11-08 06:59 | Day surgery (SDC) | payer MEDICARE, BC ==
--- NOTE | 2020-11-08 07:34 | PCM.PREANE ---
Preanesthetic Assessment - Procedure Proposed Procedure: colonoscopy - Anesthesia/Transfusion/Family Hx Anesthesia History: Prior Anesthesia Without Reaction Family History of Anesthesia Reaction: No Transfusion History: No Prior Transfusion(s) Intubation History: Unknown - Review of Systems General: No Symptoms Pulmonary: No Symptoms Cardiovascular: Other ( of heart attack "i dont have any problems now" ) Gastrointestinal: No Symptoms Neurological: No Symptoms Other: Reports: None - Physical Assessment NPO Status Date: 11/07/20 NPO Status Time: 06:30 (water /clears) Height: 1.73 m ASA Class: 3 Mental Status: Alert & Oriented x3 Airway Class: Mallampati = 1 Dentition: Reports: Dentures (left them at home ) Thyro-Mental Finger Breadths: 3 Mouth Opening Finger Breadths: 4 ROM/Head Extension: Full Lungs: Clear to Auscultation, Normal Respiratory Effort Cardiovascular: Regular Rate, Regular Rhythm - Allergies Allergies/Adverse Reactions: Allergies Allergy/AdvReac Type Severity Reaction Status Date / Time mold Allergy Severe Cannot Verified 11/07/20 16:30 Remember dust Allergy Severe Cannot Uncoded 11/07/20 16:30 Remember - Blood Blood Available: No - Acknowledgements Anesthesia Type Planned: MAC Pt an Appropriate Candidate for the Planned Anesthesia: Yes Alternatives and Risks of Anesthesia Discussed w Pt/Guardian: Yes Pt/Guardian Understands and Agrees with Anesthesia Plan: Yes PreAnesthesia Questionnaire HEENT History: Reports: Impaired Vision, Sinusitis, Other (See Below) Other HEENT History: wears glasses, has dentures Cardiovascular History: Reports: Afib, CAD, High Cholesterol, Hypertension, Pacemaker, Other (See Below) Other Cardiovascular History: sick sinus syndrome prior to pacemaker, peripheral artery disease Respiratory History: Reports: None Gastrointestinal History: Reports: Colon Polyp, GERD, Other (See Below) Other Gastrointestinal History: CDIFF Genitourinary History: Reports: Other (See Below) Other Genitourinary History: renal insufficiency RESPIRATORY CARE ASSISTANT History: Reports: None Musculoskeletal History: Reports: Other (See Below) Other Musculoskeletal History: left shoulder pain Neurological History: Reports: Other (See Below) Other Neuro History: dunaway's palsy Psychiatric History: Reports: Anxiety, Depression Endocrine/Metabolic History: Reports: Hyperparathyroidism Hematologic History: Reports: None Immunologic History: Reports: None Oncologic (Cancer) History: Reports: None Dermatologic History: Reports: None - Infectious Disease History Infectious Disease History: Reports: None - Past Surgical History Head Surgeries/Procedures: Reports: None HEENT Surgical History: Reports: Cataract Surgery Cardiovascular Surgical History: Reports: Pacer Respiratory Surgical History: Reports: None GI Surgical History: Reports: Appendectomy, Cholecystectomy, Colonoscopy Female Surgical History: Reports: None Male Surgical History: Reports: None Endocrine Surgical History: Reports: None Neurological Surgical History: Reports: None Musculoskeletal Surgical History: Reports: None Oncologic Surgical History: Reports: None Dermatological Surgical History: Reports: None - SUBSTANCE USE Tobacco Use Status *Q: Former Tobacco User Recreational Drug Use History: No - HOME MEDS Home Medications: Home Meds Apixaban [Eliquis] 5 mg PO BID 11/07/20 [History] Aspirin 81 mg PO DAILY 11/07/20 [History] ClonazePAM [KlonoPIN] 0.5 mg PO BID 11/07/20 [History] Metoprolol Tartrate 25 mg PO BID 11/07/20 [History] Sildenafil Citrate [Viagra] 25 mg PO ASDIRECTED PRN 11/07/20 [History] Vortioxetine Hydrobromide [Trintellix] 10 mg PO DAILY 11/07/20 [History] atorvaSTATin Calcium [Atorvastatin Calcium] 80 mg PO DAILY 11/07/20 [History] traZODone 50 mg PO BEDTIME 11/07/20 [History] - CURRENT (IN HOUSE) MEDS Current Meds: Current Medications Lactated Ringer's (Ringers, Lactated) 1,000 mls @ 125 mls/hr IV ASDIRECTED SERJIO Stop: 11/08/20 23:00 Lidocaine/Sodium Bicarbonate (Lidocaine 1%/Sod Bicarbonate In Ns 8.4% 1 Ml Syringe) 0.25 ml IDERM ONETIME PRN PRN Reason: Prior to IV Start Stop: 11/08/20 18:00 Sodium Chloride (Sodium Chloride 0.9% 10 Ml Syringe) 10 ml FLUSH ASDIRECTED PRN PRN Reason: Keep Vein Open Stop: 11/08/20 18:00
--- NOTE | 2020-11-08 08:10 | PCM.PREANE ---
Preanesthetic Assessment - Procedure Proposed Procedure: Colonoscopy - Anesthesia/Transfusion/Family Hx Anesthesia History: Prior Anesthesia Without Reaction Family History of Anesthesia Reaction: No Transfusion History: No Prior Transfusion(s) Intubation History: Unknown - Review of Systems General: No Symptoms Pulmonary: No Symptoms Cardiovascular: No Symptoms Gastrointestinal: Abdominal Pain (hunger pain) Neurological: No Symptoms Other: Reports: Easy Bleeding - Physical Assessment NPO Status Date: 11/07/20 NPO Status Time: 06:30 (water /clears) Height: 1.73 m Weight: 76 kg ASA Class: 3 Mental Status: Alert & Oriented x3 Airway Class: Mallampati = 1 Dentition: Reports: Dentures (top), Partial (bottom), Missing Tooth/Teeth Thyro-Mental Finger Breadths: 3 Mouth Opening Finger Breadths: 3 ROM/Head Extension: Full Lungs: Clear to Auscultation, Normal Respiratory Effort Cardiovascular: Regular Rate, Regular Rhythm - Imaging/EKG Impressions: EKG SR rate 64 E.F. 50-55% - Allergies Allergies/Adverse Reactions: Allergies Allergy/AdvReac Type Severity Reaction Status Date / Time mold Allergy Severe Cannot Verified 11/07/20 16:30 Remember dust Allergy Severe Cannot Uncoded 11/07/20 16:30 Remember - Blood Blood Available: No - Anesthesia Plan Pre-Op Medication Ordered: Beta Sirisha Beta Sirisha: Metoprolol Med Last Dose Date: 11/08/20 Med Last Dose Time: 06:30 - Acknowledgements Anesthesia Type Planned: MAC Pt an Appropriate Candidate for the Planned Anesthesia: Yes Alternatives and Risks of Anesthesia Discussed w Pt/Guardian: Yes Pt/Guardian Understands and Agrees with Anesthesia Plan: Yes PreAnesthesia Questionnaire HEENT History: Reports: Impaired Vision, Sinusitis, Other (See Below) Other HEENT History: wears glasses, has dentures Cardiovascular History: Reports: Afib, CAD, High Cholesterol, Hypertension, Pacemaker, Other (See Below) Other Cardiovascular History: sick sinus syndrome prior to pacemaker, peripheral artery disease Respiratory History: Reports: None Gastrointestinal History: Reports: Colon Polyp, GERD, Other (See Below) Other Gastrointestinal History: CDIFF Genitourinary History: Reports: Other (See Below) Other Genitourinary History: renal insufficiency SKIDDER OPERATOR History: Reports: None Musculoskeletal History: Reports: Other (See Below) Other Musculoskeletal History: left shoulder pain Neurological History: Reports: Other (See Below) Other Neuro History: dunaway's palsy Psychiatric History: Reports: Anxiety, Depression Endocrine/Metabolic History: Reports: Hyperparathyroidism Hematologic History: Reports: None Immunologic History: Reports: None Oncologic (Cancer) History: Reports: None Dermatologic History: Reports: None - Infectious Disease History Infectious Disease History: Reports: None - Past Surgical History Head Surgeries/Procedures: Reports: None HEENT Surgical History: Reports: Cataract Surgery Cardiovascular Surgical History: Reports: Pacer Respiratory Surgical History: Reports: None GI Surgical History: Reports: Appendectomy, Cholecystectomy, Colonoscopy Female Surgical History: Reports: None Male Surgical History: Reports: None Endocrine Surgical History: Reports: None Neurological Surgical History: Reports: None Musculoskeletal Surgical History: Reports: None Oncologic Surgical History: Reports: None Dermatological Surgical History: Reports: None - SUBSTANCE USE Tobacco Use Status *Q: Former Tobacco User Tobacco Use Within Last Twelve Months: No Second Hand Smoke Exposure: No Days Per Week of Alcohol Use: 0 Number of Drinks Per Day: 0 Total Drinks Per Week: 0 Recreational Drug Use History: No - HOME MEDS Home Medications: Home Meds Apixaban [Eliquis] 5 mg PO BID 11/07/20 [History] Aspirin 81 mg PO DAILY 11/07/20 [History] ClonazePAM [KlonoPIN] 0.5 mg PO BID 11/07/20 [History] Metoprolol Tartrate 25 mg PO BID 11/07/20 [History] Sildenafil Citrate [Viagra] 25 mg PO ASDIRECTED PRN 11/07/20 [History] Vortioxetine Hydrobromide [Trintellix] 10 mg PO DAILY 11/07/20 [History] atorvaSTATin Calcium [Atorvastatin Calcium] 80 mg PO DAILY 11/07/20 [History] traZODone 50 mg PO BEDTIME 11/07/20 [History] - CURRENT (IN HOUSE) MEDS Current Meds: Current Medications Lactated Ringer's (Ringers, Lactated) 1,000 mls @ 125 mls/hr IV ASDIRECTED SERJIO Stop: 11/08/20 23:00 Lidocaine/Sodium Bicarbonate (Lidocaine 1%/Sod Bicarbonate In Ns 8.4% 1 Ml Syringe) 0.25 ml IDERM ONETIME PRN PRN Reason: Prior to IV Start Stop: 11/08/20 18:00 Sodium Chloride (Sodium Chloride 0.9% 10 Ml Syringe) 10 ml FLUSH ASDIRECTED PRN PRN Reason: Keep Vein Open Stop: 11/08/20 18:00
[2020-11-08] MEDS ORDERED: Propofol 200 MG/20 ML SDV ONE ×2 (08:53)
[2020-11-08] MEDS ORDERED: Lidocaine 1% 0 ML ONE (08:54)
[2020-11-08] MEDS ORDERED: Lidocaine 1% 4 ML ONE (08:57)
--- NOTE | 2020-11-08 10:19 | PCM.OPNOTE ---
- General Post-Op/Procedure Note Date of Surgery/Procedure: 11/08/20 Operative Procedure(s): colonoscopy Findings: multiple colon polyps Pre Op Diagnosis: history of colon polyps Post-Op Diagnosis: same Anesthesia Technique: MAC Primary Surgeon: Cassi Barahona Anesthesia Provider: Mary Lou Montes Pathology: 1. Cecal polyp 2. Ascending colon polyp x4 3. Hepatic flexure polyp x3 4. Transverse colon polyp x5 5. Descending colon polyp x3 Fluid Replacement, Intraop: 950 EBL in mLs: 0 Complications: none apparent Condition: Good
--- NOTE | 2020-11-08 10:20 | PCM.PRNOTE ---
- Free Text/Narrative Note: Operative Report Date of Surgery/Procedure: November 08, 2020 Operative Procedure: Colonoscopy to cecum with polypectomy Pre Op Diagnosis: history of colon polyps Post-Op Diagnosis: same Surgeon: Cassi Barahona MD Anesthesia Technique: MAC Anesthesia Provider: Mary Lou Montes CRNA IV Fluid Replacement, Intraop: 950cc Output, Urine Amount: none EBL : 0cc Findings: multiple colon polyps Specimens: 1. Cecal polyp 2. Ascending colon polyp x4 3. Hepatic flexure polyp x3 4. Transverse colon polyp x5 5. Descending colon polyp x3 Indication: The patient is a 75 year-old gentleman who presented to the outpatient clinic requesting colonoscopy surveillance. The patient has a history of colon polyps. We discussed the procedure of a colonoscopy including the polypectomy and biopsy. Risks of bleeding and perforation were discussed, the patient understood and wished to proceed. Written and consent was obtained Description of the procedure: The patient was brought to the endoscopy suite and placed in the left lateral decubitus position. Appropriate monitors were applied. The patient was given MAC anesthesia. An anorectal examination was performed, revealing some external hemorrhoid skin tags. The scope was placed into the rectum and advanced to cecum with minimal difficulty. The patients cecum was entered, and the ileocecal valve and appendiceal orifice were identified and normal. At this point, the scope was withdrawn, paying careful attention to the mucosa. The patient had a good bowel prep. A 3mm flat was noted in the cecum and removed with a jumbo cold biopsy forceps. In the ascending colon, four polyps measuring 3-5mm semi-sessile were seen and removed with a jumbo cold biopsy forceps. Four additional semi-sessile 3-4mm polyps were found in the transverse colon and removed with a jumbo cold biopsy forceps. A 7mm semi-sessile polyp was removed from the transverse colon with a jumbo cold biopsy forceps. Three additional 3- 4mm flat polyps were removed from the descending colon with a jumbo cold biopsy forceps. In the rectum, the scope was retroflexed and no abnormalities were noted, except for some hemorrhoidal tissue. The scope was placed back in the lumen and the excess air was aspirated. The patient tolerated the procedure well. Complications: none apparent Condition: Good, transported to PACU in stable condition Cassi Barahona MD General Surgery
--- NOTE | 2020-11-08 10:22 | PCM48HPAN ---
Post Anesthesia Note - EVALUATION WITHIN 48HRS OF ANESTHETIC Vital Signs in Normal Range: Yes Patient Participated in Evaluation: Yes Respiratory Function Stable: Yes Airway Patent: Yes Cardiovascular Function Stable: Yes Hydration Status Stable: Yes Pain Control Satisfactory: Yes Nausea and Vomiting Control Satisfactory: Yes Mental Status Recovered: Yes
== END 2020-11-08 11:16 | disposition home or self-care (01) ==
LOC: JD.SDS 06:59
PROVIDERS: ATTEND Surgery
DX: Z12.11 Encounter for screening for malignant neoplasm of colon (principal); D12.0 Benign neoplasm of cecum; D12.2 Benign neoplasm of ascending colon; D12.3 Benign neoplasm of transverse colon; D12.4 Benign neoplasm of descending colon; K64.4 Residual hemorrhoidal skin tags; I10 Essential (primary) hypertension; I25.10 Atherosclerotic heart disease of native coronary artery without angina pectoris; E78.00 Pure hypercholesterolemia, unspecified; I48.91 Unspecified atrial fibrillation; Z90.49 Acquired absence of other specified parts of digestive tract; Z98.890 Other specified postprocedural states; Z87.891 Personal history of nicotine dependence; Z79.82 Long term (current) use of aspirin; Z79.899 Other long term (current) drug therapy
CPT/HCPCS: 45380; 88305; J2370; J2704; J7120; 00812; 99100

== ENCOUNTER 2021-09-09 19:51 | Emergency (ER) | payer MEDICARE, BC ==
[2021-09-09 21:44] LABS: CORONAVIRUS COVID-19 NAA POSITIVE (NEGATIVE)
== END 2021-09-09 23:19 | disposition home or self-care (01) ==
LOC: JD.ED 19:51
DX: U07.1 COVID-19 (principal); I10 Essential (primary) hypertension; Z91.048 Other nonmedicinal substance allergy status; Z79.899 Other long term (current) drug therapy; Z79.82 Long term (current) use of aspirin; Z79.01 Long term (current) use of anticoagulants; Z90.49 Acquired absence of other specified parts of digestive tract; Z87.891 Personal history of nicotine dependence
CPT/HCPCS: 0240U; 36415; 71045; 80053; 85025; 87651; 99283; 99284

== ENCOUNTER 2023-02-08 08:11 | Emergency (ER) | payer MEDICARE, BC ==
[2023-02-08] MEDS ORDERED: Ketorolac 15 MG/ML SDV IVPUSH ONE (08:38)
[2023-02-08] MEDS: Sodium Chloride 0.9% 10 ML Syringe FLUSH PRN ×2 (08:48→10:02)
[2023-02-08 08:55] LABS: BASOPHILS ABSOLUTE AUTO 0.1 K/mm3 (0.0-0.2); BASOPHILS PERCENT AUTO 1.2 % (0.0-1.0); EOSINOPHILS ABSOLUTE AUTO 0.5 K/mm3 (0.0-0.4); EOSINOPHILS PERCENT AUTO 4.4 % (0.0-6.0); HEMATOCRIT 39.1 % (42.0-52.0); HEMOGLOBIN 12.7 gm/dl (14.0-18.0); IMMATURE GRAN ABSOLUTE AUTO 0.03 K/mm3 (0.00-0.05); IMMATURE GRAN PERCENT AUTO 0.3 % (0.0-0.4); LYMPHOCYTES ABSOLUTE AUTO 1.1 K/mm3 (1.0-4.8); LYMPHOCYTES PERCENT AUTO 10.1 % (24.0-44.0); MEAN CORPUSCULAR HGB CONC 32.5 g/dl (32.0-36.0); MEAN CORPUSCULAR VOLUME 95.4 fl (83.0-99.0); MEAN PLATELET VOLUME 11.1 fl (9.4-12.4); MONOCYTES ABSOLUTE AUTO 0.7 K/mm3 (0.0-0.8); MONOCYTES PERCENT AUTO 6.1 % (0.0-8.0); NEUTROPHILS ABSOLUTE AUTO 8.3 K/mm3 (1.8-7.7); NEUTROPHILS PERCENT AUTO 77.9 % (41.0-71.0); PLATELET COUNT,PLT 143 K/mm3 (150-400); WHITE BLOOD CELL COUNT,WBC 10.65 K/mm3 (3.9-11.3)
[2023-02-08 09:16] LABS: A/G RATIO 0.8 (1-2); ANION GAP 9.3 (5-15); BILIRUBIN TOTAL 0.8 mg/dL (0.2-1.0); CALCIUM 8.6 mg/dL (8.5-10.1); CREATININE 1.8 mg/dL (0.7-1.3); EST CRCL DRUG DOSING (CG) 32.72 mL/min; POTASSIUM,K 4.3 mEq/L (3.5-5.1); PROTEIN TOTAL,TP 6.6 g/dl (6.4-8.2)
[2023-02-08 09:29] LABS: APPEARANCE,URINE CLEAR (Clear); BILIRUBIN,URINE 1+ (Negative); COLOR,URINE YELLOW (Yellow); GLUCOSE,URINE NEGATIVE (Negative); KETONES,URINE TRACE (Negative); LEUKOCYTE ESTERASE,URINE NEGATIVE (Negative); NITRITE,URINE NEGATIVE (Negative); OCCULT BLOOD,URINE NEGATIVE (Negative); PH,URINE 5.5 (5.0-8.0); PROTEIN,URINE NEGATIVE (Negative); UROBILINOGEN,URINE 0.2 (0.2-1.0)
[2023-02-08] MEDS ORDERED: Iopamidol 612 MG/ML 100 ML Bottle IVPUSH ONE (09:48)
[2023-02-08] MEDS ORDERED: Sodium Chloride 0.9% 100 ML IV SCH (10:00)
[2023-02-08] MEDS ORDERED: Orphenadrine 60 MG/2 ML Inj IM ONE (11:19)
[2023-02-08] MEDS ORDERED: Orphenadrine 60 MG/2 ML Inj IV ONE (11:30)
== END 2023-02-08 13:55 | disposition home or self-care (01) ==
LOC: JD.ED 08:11
DX: M62.830 Muscle spasm of back (principal); I10 Essential (primary) hypertension; E78.00 Pure hypercholesterolemia, unspecified; I48.91 Unspecified atrial fibrillation; I25.810 Atherosclerosis of coronary artery bypass graft(s) without angina pectoris; Z95.0 Presence of cardiac pacemaker; E21.3 Hyperparathyroidism, unspecified; Z90.49 Acquired absence of other specified parts of digestive tract; Z79.82 Long term (current) use of aspirin; Z79.899 Other long term (current) drug therapy; Z91.048 Other nonmedicinal substance allergy status
CPT/HCPCS: 36415; 74177; 80053; 81003; 85025; 96374; 96375; 99284; J1885; J2360; J3490; Q9967